=== PATIENT | male | born 1965 | race Two or more races ===

== ENCOUNTER 2023-02-17 09:43 | Outpatient (CLI) | payer OTHER ==
[~2023-02-17 09:43] MED LIST: METOPROLOL SUCC50 MG
== END 2023-02-17 09:45 | disposition home or self-care (01) ==
LOC: NUCLEAR 09:43
PROVIDERS: ATTEND Internal Medicine Cardiovascular Disease
DX: M81.0 Age-related osteoporosis without current pathological fracture (principal); B20 Human immunodeficiency virus [HIV] disease; I20.1 Angina pectoris with documented spasm